=== PATIENT | female | born 1965 | race African-American/Black ===

== ENCOUNTER 2017-12-01 02:42 | Emergency (ER) | payer OTHER ==
[2017-12-01 04:49] LABS: ADD MAN DIFF? NO
[2017-12-01 04:51] LABS: BASO # 0.1 x10^3/uL (0.0-0.2); BASO % 1 % (0-3); EOS % 0 % (0-3); HEMOGLOBIN 8.1 g/dL (12.0-15.5); LYMPH # 1.8 x10^3/uL (1.0-4.8); LYMPH % 18 % (24-48); MEAN CORPUSCULAR HEMOGLOBIN 18 pg (25-35); MEAN CORPUSCULAR HGB CONC 29 g/dL (31-37); MEAN CORPUSCULAR VOLUME 62 fL (79-100); MONO % 10 % (0-9); NEUT # 7.2 x10^3uL (1.8-7.7); NEUT % 70 % (31-73); PLATELET COUNT 231 x10^3/uL (140-400); RED CELL DISTRIBUTION WIDTH 21.6 % (11.5-14.5); WHITE BLOOD COUNT 10.2 x10^3/uL (4.0-11.0)
[2017-12-01] MEDS ORDERED: KETOROLAC 30 MG/ML INJ. (04:53)
[2017-12-01] MEDS: IV NORMAL SALINE 1000ML BAG 1,000 ML IV (04:57)
[2017-12-01] MEDS: KETOROLAC 15 MG/ML VIAL. IV (05:04)
[2017-12-01 05:05] LABS: ANION GAP 9 (6-14); BLOOD UREA NITROGEN 26 mg/dL (7-20); BUN/CREATININE RATIO 26 (6-20); CALCIUM 9.1 mg/dL (8.5-10.1); CARBON DIOXIDE 28 mmol/L (21-32); CHLORIDE 105 mmol/L (98-107); GLUCOSE 91 mg/dL (70-99); POTASSIUM 3.5 mmol/L (3.5-5.1); SODIUM 142 mmol/L (136-145)
[2017-12-01] MEDS: AMPICILLIN/SULBACTAM 3 GM in IV NORMAL SALINE 100ML 100 ML IV (05:08)
[2017-12-01 05:10] LABS: ALBUMIN 3.5 g/dL (3.4-5.0); ALBUMIN/GLOBULIN RATIO 0.7 (1.0-1.7); ALK PHOS 129 U/L (46-116); ALT (SGPT) 32 U/L (14-59); AST (SGOT) 26 U/L (15-37); TOTAL BILIRUBIN 0.8 mg/dL (0.2-1.0); TOTAL PROTEIN 8.8 g/dL (6.4-8.2)
[2017-12-01] MEDS ORDERED: CONTRAST GIVEN MC (06:00)
[2017-12-01] MEDS: IOHEXOL 300 MG/ML 100ML VIAL. IV (06:05)
[2017-12-01] MEDS: DEXAMETHASONE SOD PHOS 20 MG/5 ML VIAL. IV (07:05)
[2017-12-01 10:20] LABS: PLT ESTIMATE ADEQUATE (ADEQUATE)
[2017-12-01 10:21] LABS: ANISOCYTOSIS MOD; HYPOCHROMIA PRESENT; OVALOCYTES FEW; POLYCHROMASIA SLIGHT; TEAR DROP CELLS OCC
== END 2017-12-01 07:34 | disposition home or self-care (01) ==
LOC: ER 02:42
DX: J02.9 Acute pharyngitis, unspecified (principal); H92.02 Otalgia, left ear
CPT/HCPCS: 36415; 70491; 80053; 83605; 84702; 85025; 87040; 96365; 96375; 99285-25; J0295; J1100; J1885; J7030; Q9967

== ENCOUNTER 2018-08-28 09:08 | Emergency (ER) | payer OTHER ==
[~2018-08-28] VITALS: Ht 152.4 cm; Wt 77.1 kg
[~2018-08-28 09:08] MED LIST: AMOX1TAB61 PO; HYDR15SO6 PO; PRED50TA PO
[2018-08-28 09:56] LABS: BILIRUBIN,URINE NEGATIVE (NEG); CLARITY,URINE CLOUDY; COLOR,URINE YELLOW; NITRITE,URINE NEGATIVE (NEG); PH,URINE 6.5; PROTEIN,URINE NEGATIVE (NEG-TRACE)
[2018-08-28 10:03] LABS: BACTERIA,URINE FEW /HPF (0-FEW); RBC,URINE OCC /HPF (0-2); SQUAMOUS EPITHELIAL CELL,UR MANY /LPF
[2018-08-28] MEDS ORDERED: FLUCONAZOLE 100 MG TABLET. PO ONE (10:30)
[2018-08-28] MEDS ORDERED: CEPH500C PO (10:34)
[2018-08-28] MEDS ORDERED: AMLO5TAB10 PO (10:34)
[2018-08-28 10:55] VITALS: BP 178/80
--- NOTE | 2018-08-28 10:55 | PHYS DOC ---
Past Medical History Past Medical History: No Pertinent History Additional Past Surgical Histo: GALLSTONES REMOVED Alcohol Use: None Drug Use: None Adult General Chief Complaint Chief Complaint: VAGINAL PROBLEM HPI HPI Patient is a 52 year old female presenting with vaginal itching and some irritation as well as a sensation of something "protruding" from that area. No dysuria no fever no abdominal pain no other symptoms. Current Medications Current Medications Current Medications Medications (Trade) Dose Ordered Sig/Marybeth Start Time Stop Time Status Last Admin Dose Admin Fluconazole (Diflucan) 150 mg 1X ONCE 08/28/18 10:30 08/28/18 10:31 DC Allergies Allergies Allergies Coded Allergies Type Severity Reaction Last Updated Verified No Known Drug Allergies 12/01/17 No Physical Exam Physical Exam Constitutional: Well developed, well nourished, no acute distress, non-toxic appearance. [] HENT: Normocephalic, atraumatic, bilateral external ears normal, oropharynx moist, no oral exudates, nose normal. [] Eyes: PERRLA, EOMI, conjunctiva normal, no discharge. [] Neck: Normal range of motion, no tenderness, supple, no stridor. [] Pulmonary: Normal respiratory effort no increased work of breathing no obvious chest wall trauma ; THERE IS SMALL TO MODERATE WHITISH VAG D/C THERE ARE PROMINENT MILDLY SWOLLEN EXTERNAL LABIA, NO LESIONS. NO UTERINE PROLAPSE Abdomen: Bowel sounds normal, soft, no tenderness, no masses, no pulsatile masses. [] Extremities: No tenderness, no cyanosis, no clubbing, ROM intact, no edema. [] Neurologic: Alert and oriented X 3, normal motor function, normal sensory function, no focal deficits noted. [] Psychologic: Affect normal, judgement normal, mood normal. [] Current Patient Data Vital Signs Vital Signs Date Time Temp Pulse Resp B/P (MAP) Pulse Ox O2 Delivery O2 Flow Rate FiO2 08/28/18 09:30 97.9 88 18 209/99 (135) 99 Room Air 97.9 Lab Values Laboratory Tests Test 08/28/18 09:23 08/28/18 09:28 Urine Collection Type Unknown Urine Color Yellow Urine Clarity Cloudy Urine pH 6.5 Urine Specific Sherrill 1.020 Urine Protein Negative mg/dL (NEG-TRACE) Urine Glucose (UA) Negative mg/dL (NEG) Urine Ketones (Stick) Negative mg/dL (NEG) Urine Blood Trace (NEG) Urine Nitrite Negative (NEG) Urine Bilirubin Negative (NEG) Urine Urobilinogen Dipstick 1.0 mg/dL (0.2 mg/dL) Urine Leukocyte Esterase Large (NEG) Urine RBC Occ /HPF (0-2) Urine WBC 11-20 /HPF (0-4) Urine Squamous Epithelial Cells Many /LPF Urine Bacteria Few /HPF (0-FEW) POC Urine HCG, Qualitative Hcg negative (Negative) Microbiology 08/28/18 Wet Prep - Final, Complete EKG EKG [] Radiology/Procedures Radiology/Procedures [] Course & Med Decision Making Course & Med Decision Making Pertinent Labs and Imaging studies reviewed. (See chart for details) []Elevated blood pressure I gave up her prescription for amlodipine she says her pressures been in the 170s at home for a while now Probable candidal vaginitis based on wet prep fluconazole was given also Keflex given for possible UTI no obvious evidence of active STI related skin lesions however there was some nonspecific external labial swelling cultures are pending and patient is aware. Dragon Disclaimer Dragon Disclaimer This electronic medical record was generated, in whole or in part, using a voice recognition dictation system. Departure Departure Impression: Primary Impression: Vaginitis Additional Impression: Elevated blood pressure reading Disposition: HOME, SELF-CARE Condition: STABLE Patient Instructions: Vaginitis, [id number] Additional Instructions: GET BP CHECKED IN ONE MONTH Scripts Amlodipine Besylate (AMLODIPINE BESYLATE) 5 Mg Tablet 5 MG PO DAILY, #30 TAB Prov: CHRISTINE GUSTAFSON MD 08/28/18 Cephalexin (CEPHALEXIN) 500 Mg Capsule 1 CAP PO QID, #28 CAP Prov: CHRISTINE GUSTAFSON MD 08/28/18 Problem Qualifiers CHRISTINE GUSTAFSON MD Aug 28, 2018 10:55
[2018-08-30 14:16] LABS: GC PROBE Negative (Negative)
== END 2018-08-28 11:00 | disposition home or self-care (01) ==
LOC: ER 09:08
DX: N76.0 Acute vaginitis (principal); R03.0 Elevated blood-pressure reading, without diagnosis of hypertension
CPT/HCPCS: 81001; 81025; 87086; 87491; 87591; 99283; Q0111

== ENCOUNTER 2018-09-16 09:59 | Inpatient (IN) | payer OTHER ==
[2018-09-16] VITALS (7 sets, daily range): BP systolic 105–149; BP diastolic 54–80
[~2018-09-16] VITALS: Ht 152.4 cm; Wt 92.5 kg
[~2018-09-16 09:59] MED LIST changes: +AMLO5TAB10 PO; +CEPH500C PO
--- NOTE | 2018-09-16 11:12 | PHYS DOC ---
Past Medical History Past Medical History: No Pertinent History Additional Past Surgical Histo: GALLSTONES REMOVED Alcohol Use: None Drug Use: None Adult General Chief Complaint Chief Complaint: ABNORMAL LABS HPI HPI Patient is a 52-year-old female who presents to the emergency department for evaluation. She states she has been having some fatigue and dyspnea on exertion for the past several months, and went to see her doctor 2 days ago for a refill of an inhaler, and had some routine blood tests drawn. The patient states she was called and told that her hemoglobin was low, 5.9 according to the results she has with her, and she was sent to the emergency department. She does still have menstrual periods but there are not heavy, and she denies any black or bloody stools, dizziness or lightheadedness. There are no alleviating or exacerbating factors to her symptoms otherwise. Review of Systems Review of Systems Constitutional: Denies fever or chills [] Eyes: Denies change in visual acuity, redness, or eye pain [] HENT: Denies nasal congestion or sore throat [] Respiratory: Denies cough or shortness of breath although she does report some dyspnea on exertion. [] Cardiovascular: The patient denies any shortness of breath, chest pain, palpitations, or orthopnea [] GI: Denies abdominal pain, nausea, vomiting, bloody stools or diarrhea [] : Denies dysuria or hematuria [] Musculoskeletal: Denies back pain or joint pain [] Integument: Denies rash or skin lesions [] Neurologic: Denies headache, focal weakness or sensory changes [] Endocrine: Denies polyuria or polydipsia [] All other systems were reviewed and found to be within normal limits, except as documented in this note. Allergies Allergies Allergies Coded Allergies Type Severity Reaction Last Updated Verified No Known Drug Allergies 12/01/17 No Physical Exam Physical Exam PHYSICAL EXAM: CONSTITUTIONAL: Well developed, well nourished HEAD: normocephalic, atraumatic EENT: PERRL, EOMI. Conjunctivae appear pale, sclerae non-icteric; moist mucous membranes. NECK: Supple, non-tender; no meningismus. LUNGS: Lungs CTA, breathing even and unlabored. Normal air movement. HEART: Regular rate and rhythm, no murmur CHEST: No deformity; non-tender ABDOMEN: The abdomen is soft, and non-tender, no masses or bruits. EXTREM: Normal ROM; no deformity, no calf tenderness. Normal pulses palpable in all extremities. There is no pedal edema. SKIN: No rash; no diaphoresis NEURO: Alert; normal speech and cognition; CN's grossly intact; strength grossly intact without focal deficit. BACK: No CVA TTP. Current Patient Data Vital Signs Vital Signs Date Time Temp Pulse Resp B/P (MAP) Pulse Ox O2 Delivery O2 Flow Rate FiO2 09/16/18 10:55 98.2 86 16 126/71 (89) 99 Room Air 98.2 Lab Values Laboratory Tests Test 09/16/18 10:46 09/16/18 11:13 POC Urine HCG, Qualitative Hcg negative (Negative) White Blood Count 5.1 x10^3/uL (4.0-11.0) Red Blood Count 3.76 x10^6/uL (3.50-5.40) Hemoglobin 6.5 g/dL (12.0-15.5) *L Hematocrit 23.4 % (36.0-47.0) L Mean Corpuscular Volume 62 fL (79-100) L Mean Corpuscular Hemoglobin 17 pg (25-35) L Mean Corpuscular Hemoglobin Concent 28 g/dL (31-37) L Red Cell Distribution Width 20.4 % (11.5-14.5) H Platelet Count 254 x10^3/uL (140-400) Neutrophils (%) (Auto) 55 % (31-73) Lymphocytes (%) (Auto) 33 % (24-48) Monocytes (%) (Auto) 9 % (0-9) Eosinophils (%) (Auto) 2 % (0-3) Basophils (%) (Auto) 1 % (0-3) Neutrophils # (Auto) 2.8 x10^3uL (1.8-7.7) Lymphocytes # (Auto) 1.7 x10^3/uL (1.0-4.8) Monocytes # (Auto) 0.5 x10^3/uL (0.0-1.1) Eosinophils # (Auto) 0.1 x10^3/uL (0.0-0.7) Basophils # (Auto) 0.0 x10^3/uL (0.0-0.2) Prothrombin Time 13.0 SEC (11.7-14.0) Prothrombin Time INR 1.0 (0.8-1.1) Sodium Level 142 mmol/L (136-145) Potassium Level 4.0 mmol/L (3.5-5.1) Chloride Level 103 mmol/L (98-107) Carbon Dioxide Level 29 mmol/L (21-32) Anion Gap 10 (6-14) Blood Urea Nitrogen 11 mg/dL (7-20) Creatinine 0.7 mg/dL (0.6-1.0) Estimated GFR (Cockcroft-Gault) 106.7 BUN/Creatinine Ratio 16 (6-20) Glucose Level 96 mg/dL (70-99) Calcium Level 8.4 mg/dL (8.5-10.1) L Iron Level 10 ug/dL (50-170) L Total Iron Binding Capacity 510 ug/dL (250-450) H Iron Saturation 2 % (15-34) L Total Bilirubin 0.3 mg/dL (0.2-1.0) Aspartate Amino Transferase (AST) 16 U/L (15-37) Alanine Aminotransferase (ALT) 19 U/L (14-59) Alkaline Phosphatase 102 U/L (46-116) Total Protein 8.2 g/dL (6.4-8.2) Albumin 3.7 g/dL (3.4-5.0) Albumin/Globulin Ratio 0.8 (1.0-1.7) L Laboratory Tests 09/16/18 11:13 Laboratory Tests 09/16/18 11:13 EKG EKG [] Radiology/Procedures Radiology/Procedures [] Course & Med Decision Making Course & Med Decision Making Pertinent Lab studies reviewed. (See chart for details) [11:55 AM:The patient's condition remains stable. I spoke with the hospitalist , who accepted the patient to the hospital for further evaluation and treatment. ] Dragon Disclaimer Dragon Disclaimer This electronic medical record was generated, in whole or in part, using a voice recognition dictation system. Departure Departure Impression: Primary Impression: Anemia Disposition: 09 ADMITTED INPATIENT Admitting Physician: Zana Patricio Condition: STABLE Referrals: CAIO HEATH MD (PCP) IDA TEIXEIRA MD Sep 16, 2018 11:12
[2018-09-16 11:31] LABS: BASO % 1 % (0-3); EOS # 0.1 x10^3/uL (0.0-0.7); EOS % 2 % (0-3); HEMATOCRIT 23.4 % (36.0-47.0); LYMPH # 1.7 x10^3/uL (1.0-4.8); LYMPH % 33 % (24-48); MEAN CORPUSCULAR HEMOGLOBIN 17 pg (25-35); MEAN CORPUSCULAR HGB CONC 28 g/dL (31-37); MEAN CORPUSCULAR VOLUME 62 fL (79-100); MONO # 0.5 x10^3/uL (0.0-1.1); MONO % 9 % (0-9); NEUT # 2.8 x10^3uL (1.8-7.7); NEUT % 55 % (31-73); PLATELET COUNT 254 x10^3/uL (140-400); RED BLOOD COUNT 3.76 x10^6/uL (3.50-5.40); RED CELL DISTRIBUTION WIDTH 20.4 % (11.5-14.5); WHITE BLOOD COUNT 5.1 x10^3/uL (4.0-11.0)
[2018-09-16 11:35] LABS: CALCIUM 8.4 mg/dL (8.5-10.1); CREATININE 0.7 mg/dL (0.6-1.0); GFR 106.7
[2018-09-16 11:39] LABS: HEMOGLOBIN 6.5 g/dL (12.0-15.5)
[2018-09-16 11:40] LABS: ALBUMIN 3.7 g/dL (3.4-5.0); ALBUMIN/GLOBULIN RATIO 0.8 (1.0-1.7); TOTAL BILIRUBIN 0.3 mg/dL (0.2-1.0); TOTAL PROTEIN 8.2 g/dL (6.4-8.2)
[2018-09-16] MEDS ORDERED: FERROUS SULFATE 325 MG TABLET. PO ONE (12:00)
[2018-09-16 12:42] LABS: PLT ESTIMATE ADEQUATE (ADEQUATE)
[2018-09-16 12:43] LABS: ANISOCYTOSIS MOD; HYPOCHROMIA MARKED; MICROCYTOSIS MARKED; OVALOCYTES MOD; POLYCHROMASIA SLIGHT; SCHISTOCYTES OCC; TEAR DROP CELLS OCC
--- NOTE | 2018-09-16 13:07 | PDOC1 ---
History and Physical Date of Admission Date of Admission DATE: 09/16/18 TIME: 13:06 Identification/Chief Complaint Chief Complaint seen in er She states she has been having some fatigue and dyspnea on exertion for the past several months,saw doctor 2 days ago for a refill of an inhaler, routine blood tests drawn. she was called and told that her hemoglobin was low, 5.9 according to the results she has with her, and she was sent to the emergency department. does still have menstrual periods but there are not heavy, does not take iron, no blood seen in her stools at home Past Medical History Past Medical History Past Medical History Past Medical History Past Medical History: HTN Additional Past Surgical Histo: GALLSTONES REMOVED Alcohol Use: None Drug Use: None NO TOBACCO PEV VAG DELIVERIES NO COMPLICATIONS FHX OBESITY GI: No pertinent hx Heme/Onc: Anemia NOS Hepatobiliary: No pertinent hx Psych: No pertinent hx Family History Family History: Hypertension Social History Smoke: No ALCOHOL: none Drugs: None Current Problem List Problem List Problems Medical Problems: (1) Anemia Status: Acute Current Medications Current Medications Current Medications Ferrous Sulfate (Feosol) 325 mg 1X ONCE PO Last administered on 09/16/18at 12: 50; Start 09/16/18 at 12:00; Stop 09/16/18 at 12:01; Status DC Active Scripts Active Amlodipine Besylate 5 Mg Tablet 5 Mg PO DAILY Cephalexin 500 Mg Capsule 1 Cap PO QID Hydrocodone-Apap 7.5-325/15 Soln (Hydrocodone Bit/Acetaminophen) 15 Ml Solution 15 Ml PO PRN Q8HRS PRN Prednisone 50 Mg Tablet 1 Tab PO DAILY Start taking medication on 12/02. Augmentin 875-125 Tablet (Amoxicillin/Potassium Clav) 1 Each Tablet 1 Tab PO BID Allergies Allergies: Coded Allergies: No Known Drug Allergies (Unverified , 12/01/17) ROS Review of System Review of Systems Review of Systems Constitutional: Denies fever or chills [] Eyes: Denies change in visual acuity, redness, or eye pain [] HENT: Denies nasal congestion or sore throat [] Respiratory: Denies cough or shortness of breath although she does report some dyspnea on exertion. [] Cardiovascular: The patient denies any shortness of breath, chest pain, palpitations, or orthopnea [] GI: Denies abdominal pain, nausea, vomiting, bloody stools or diarrhea [] : Denies dysuria or hematuria [] Musculoskeletal: Denies back pain or joint pain [] Integument: Denies rash or skin lesions [] Neurologic: Denies headache, focal weakness or sensory changes [] Endocrine: Denies polyuria or polydipsia [] 14 pt systems were reviewed and found to be within normal limits, except as documented General: YES: Fatigue Hematological and Lymphatic: No: Bleeding Problems, Blood Clots, Blood Transfusions, Brusing, Night Sweats, Pallor, Swollen Lymph Nodes, Other Gastrointestinal: No Nausea, No Vomiting, No Abdominal Pain, No Diarrhea, No Constipation, No Melena, No Hematochezia, No Other Musculoskeletal: No Gait Disturbance, No Joint Pain, No Joint Stiffness, No Joint Swelling, No Muscle Pain, No Muscular Weakness, No Pain In:, No Swelling In:, No Other Neurological: No Behavorial Changes, No Bowel/Bladder ControlChng, No Confusion , No Dizziness, No Gait Disturbance, No Headaches, No Impaired Coord/balance, No Memory Loss, No Numbness/Tingling, No Seizures, No Speech Problems, No Tremors, No Visual Changes, No Weakness, No Other Physical Exam Physical Exam Physical Exam Physical Exam PHYSICAL EXAM: CONSTITUTIONAL: Well developed, well nourished HEAD: normocephalic, atraumatic EENT: PERRL, EOMI. Conjunctivae appear pale, sclerae non-icteric; moist mucous membranes. NECK: Supple, non-tender; no meningismus. LUNGS: Lungs CTA, Normal air movement. HEART: Regular rate and rhythm, no murmur CHEST: No deformity; non-tender ABDOMEN: The abdomen is soft, and non-tender, no masses or bruits. EXTREM: Normal ROM; no deformity, no calf tenderness. Normal pulses palpable in all extremities. There is no pedal edema. SKIN: No rash; no diaphoresis NEURO: Alert; normal speech and cognition; CN's grossly intact; strength grossly intact without focal deficit. Rectal Exam: not examined Extremities: No cyanosis Neuro: Normal speech, Cranial nerves 3-12 NL Psych/Mental Status: Mental status NL, Mood NL Vitals Vitals Vital Signs Date Time Temp Pulse Resp B/P (MAP) Pulse Ox O2 Delivery O2 Flow Rate FiO2 09/16/18 10:55 98.2 86 16 126/71 (89) 99 Room Air 98.2 Labs Labs Laboratory Tests Test 09/16/18 10:46 09/16/18 11:13 Bedside Urine HCG, Qualitative Hcg negative (Negative) White Blood Count 5.1 x10^3/uL (4.0-11.0) Red Blood Count 3.76 x10^6/uL (3.50-5.40) Hemoglobin 6.5 g/dL (12.0-15.5) Hematocrit 23.4 % (36.0-47.0) Mean Corpuscular Volume 62 fL (79-100) Mean Corpuscular Hemoglobin 17 pg (25-35) Mean Corpuscular Hemoglobin Concent 28 g/dL (31-37) Red Cell Distribution Width 20.4 % (11.5-14.5) Platelet Count 254 x10^3/uL (140-400) Neutrophils (%) (Auto) 55 % (31-73) Lymphocytes (%) (Auto) 33 % (24-48) Monocytes (%) (Auto) 9 % (0-9) Eosinophils (%) (Auto) 2 % (0-3) Basophils (%) (Auto) 1 % (0-3) Neutrophils # (Auto) 2.8 x10^3uL (1.8-7.7) Lymphocytes # (Auto) 1.7 x10^3/uL (1.0-4.8) Monocytes # (Auto) 0.5 x10^3/uL (0.0-1.1) Eosinophils # (Auto) 0.1 x10^3/uL (0.0-0.7) Basophils # (Auto) 0.0 x10^3/uL (0.0-0.2) Platelet Estimate Adequate (ADEQUATE) Large Platelets Few Giant Platelets Few Polychromasia Slight Hypochromasia Marked Basophilic Stippling Present Anisocytosis Mod Microcytosis Marked Tear Drop Cells Occ Ovalocytes Mod Schistocytes Occ Prothrombin Time 13.0 SEC (11.7-14.0) Prothromb Time International Ratio 1.0 (0.8-1.1) Sodium Level 142 mmol/L (136-145) Potassium Level 4.0 mmol/L (3.5-5.1) Chloride Level 103 mmol/L (98-107) Carbon Dioxide Level 29 mmol/L (21-32) Anion Gap 10 (6-14) Blood Urea Nitrogen 11 mg/dL (7-20) Creatinine 0.7 mg/dL (0.6-1.0) Estimated GFR (Cockcroft-Gault) 106.7 BUN/Creatinine Ratio 16 (6-20) Glucose Level 96 mg/dL (70-99) Calcium Level 8.4 mg/dL (8.5-10.1) Iron Level 10 ug/dL (50-170) Total Iron Binding Capacity 510 ug/dL (250-450) Iron Saturation 2 % (15-34) Total Bilirubin 0.3 mg/dL (0.2-1.0) Aspartate Amino Transf (AST/SGOT) 16 U/L (15-37) Alanine Aminotransferase (ALT/SGPT) 19 U/L (14-59) Alkaline Phosphatase 102 U/L (46-116) Total Protein 8.2 g/dL (6.4-8.2) Albumin 3.7 g/dL (3.4-5.0) Albumin/Globulin Ratio 0.8 (1.0-1.7) Serum Folate 11.51 ng/ml (3.2-20.0) Laboratory Tests Test 09/16/18 10:46 09/16/18 11:13 Bedside Urine HCG, Qualitative Hcg negative (Negative) White Blood Count 5.1 x10^3/uL (4.0-11.0) Red Blood Count 3.76 x10^6/uL (3.50-5.40) Hemoglobin 6.5 g/dL (12.0-15.5) Hematocrit 23.4 % (36.0-47.0) Mean Corpuscular Volume 62 fL (79-100) Mean Corpuscular Hemoglobin 17 pg (25-35) Mean Corpuscular Hemoglobin Concent 28 g/dL (31-37) Red Cell Distribution Width 20.4 % (11.5-14.5) Platelet Count 254 x10^3/uL (140-400) Neutrophils (%) (Auto) 55 % (31-73) Lymphocytes (%) (Auto) 33 % (24-48) Monocytes (%) (Auto) 9 % (0-9) Eosinophils (%) (Auto) 2 % (0-3) Basophils (%) (Auto) 1 % (0-3) Neutrophils # (Auto) 2.8 x10^3uL (1.8-7.7) Lymphocytes # (Auto) 1.7 x10^3/uL (1.0-4.8) Monocytes # (Auto) 0.5 x10^3/uL (0.0-1.1) Eosinophils # (Auto) 0.1 x10^3/uL (0.0-0.7) Basophils # (Auto) 0.0 x10^3/uL (0.0-0.2) Platelet Estimate Adequate (ADEQUATE) Large Platelets Few Giant Platelets Few Polychromasia Slight Hypochromasia Marked Basophilic Stippling Present Anisocytosis Mod Microcytosis Marked Tear Drop Cells Occ Ovalocytes Mod Schistocytes Occ Prothrombin Time 13.0 SEC (11.7-14.0) Prothromb Time International Ratio 1.0 (0.8-1.1) Sodium Level 142 mmol/L (136-145) Potassium Level 4.0 mmol/L (3.5-5.1) Chloride Level 103 mmol/L (98-107) Carbon Dioxide Level 29 mmol/L (21-32) Anion Gap 10 (6-14) Blood Urea Nitrogen 11 mg/dL (7-20) Creatinine 0.7 mg/dL (0.6-1.0) Estimated GFR (Cockcroft-Gault) 106.7 BUN/Creatinine Ratio 16 (6-20) Glucose Level 96 mg/dL (70-99) Calcium Level 8.4 mg/dL (8.5-10.1) Iron Level 10 ug/dL (50-170) Total Iron Binding Capacity 510 ug/dL (250-450) Iron Saturation 2 % (15-34) Total Bilirubin 0.3 mg/dL (0.2-1.0) Aspartate Amino Transf (AST/SGOT) 16 U/L (15-37) Alanine Aminotransferase (ALT/SGPT) 19 U/L (14-59) Alkaline Phosphatase 102 U/L (46-116) Total Protein 8.2 g/dL (6.4-8.2) Albumin 3.7 g/dL (3.4-5.0) Albumin/Globulin Ratio 0.8 (1.0-1.7) Serum Folate 11.51 ng/ml (3.2-20.0) VTE Prophylaxis Ordered VTE Prophylaxis Devices: No VTE Pharmacological Prophylaxi: Yes Assessment/Plan Assessment/Plan impression 1. severe anemia, baseline hgb 8.1 in 2018 here NOW 6.5 2. MICROCYTIC INDICES, FE DEF LIKELY 3. OBESITY 4. HYPERTENSION 5. FATIGUE SEC TO ANEMIA plan transfuse x 1 unit gi consult, may need out pt UGI/ COLONOSCOPY/ EGD IRON PANEL,// FERRITIN NORVASC 5 MG PO DAILY TSH SCD MARVIN CARABALLO MD Sep 16, 2018 13:07
--- NOTE | 2018-09-16 14:06 | EKG ---
[facility] [address] [place] [address] Test Date: 2018-09-16 Test Time: 12:20:35 Pat Name: MOIZ VALERIO Department: Room: 574 1 Gender: F Accounting Office Manager: : 1965 Requested By: IDA TEIXEIRA Order Number: [id number] Reading MD: Tucker Palacios MD Measurements Intervals [place] Rate: 80 P: 72 AR: 152 QRS: 45 QRSD: 76 T: 25 QT: 388 QTc: 451 Interpretive Statements SINUS RHYTHM Electronically Signed On 09-23-2018 13:47:08 CDT by Tucker Palacios MD
[2018-09-16] MEDS ORDERED: HYDROcodone/APAP 7.5/325MG 1 TAB TABLET PO PRN (18:00)
[2018-09-16] MEDS ORDERED: HYDROcodon/APAP 7.5/325MG ORAL 15 ML SOLUTION PO PRN (18:00)
[2018-09-16] MEDS ORDERED: MAGNESIUM HYDROXIDE 2,400 MG/30 ML ORAL.SUSP. PO PRN (21:00)
[2018-09-16] MEDS: DOCUSATE SODIUM 100 MG CAPSULE. PO SCH (21:08)
[2018-09-17 03:00] VITALS: BP 133/84
[2018-09-17 04:19] LABS: BASO # 0.1 x10^3/uL (0.0-0.2); BASO % 1 % (0-3); EOS # 0.1 x10^3/uL (0.0-0.7); EOS % 1 % (0-3); HEMATOCRIT 23.6 % (36.0-47.0); LYMPH # 2.1 x10^3/uL (1.0-4.8); LYMPH % 31 % (24-48); MEAN CORPUSCULAR HEMOGLOBIN 19 pg (25-35); MEAN CORPUSCULAR HGB CONC 29 g/dL (31-37); MONO # 0.5 x10^3/uL (0.0-1.1); MONO % 8 % (0-9); NEUT # 4.2 x10^3uL (1.8-7.7); NEUT % 60 % (31-73); PLATELET COUNT 207 x10^3/uL (140-400); RED BLOOD COUNT 3.57 x10^6/uL (3.50-5.40); RED CELL DISTRIBUTION WIDTH 25.6 % (11.5-14.5); WHITE BLOOD COUNT 6.9 x10^3/uL (4.0-11.0)
[2018-09-17 04:35] LABS: CALCIUM 8.5 mg/dL (8.5-10.1); CREATININE 0.6 mg/dL (0.6-1.0); GFR 127.5; POTASSIUM 3.9 mmol/L (3.5-5.1)
[2018-09-17 05:27] LABS: HEMOGLOBIN 6.8 g/dL (12.0-15.5)
[2018-09-17 05:29] LABS: MEAN CORPUSCULAR VOLUME 66 fL (79-100)
[2018-09-17 07:00] VITALS: BP 119/62
[2018-09-17] MEDS: DOCUSATE SODIUM 100 MG CAPSULE. PO SCH (09:00)
[2018-09-17] MEDS ORDERED: amLODIPine BESYLATE 5 MG TABLET PO SCH (09:00)
[2018-09-17] MEDS ORDERED: POLYETHYLENE GLYCOL 3350 17 GM PACKET. PO SCH (09:00)
[2018-09-17 09:43] VITALS: BP 125/62
--- NOTE | 2018-09-17 09:58 | PDOC2 ---
GI CONSULT Reason For Consult: Anemia, may need outpt colonoscopy HPI: HPI: 52 y/o female sent to ER by PCP for anemia and admitted. Reports h/o anemia for 6-12 months, followed by her PCP, unclear etiology. Noted w/ microcytic anemia here in 2018. Some fatigue and SOA recently, but no bleeding. Iron deficient this admission. No hematemesis, hematochezia, melena, or menorrhagia. Would like to go home today. H/o reflux (burning in throat) x 1 year, takes a lot of baking soda. No dysphagia. No n/v. No abd pain. No diarrhea or constipation. Good appetite. Has gained "a lot" of weight. No previous EGD or colonoscopy. S/p cholecystectomy for gallstones. No liver, pancreas, or PUD history. No regular use of NSAIDs. Says her doctor recently found some lumps in her breasts. PMH: PMH: HTN, asthma, anemia cholecystectomy, appendectomy FH: Family History: Cancer ("lots of cancer in my family") Social History: Smoke: No ALCOHOL: none Drugs: None ROS: GEN: +fatigue HEENT: Denies blurred vision, sore throat CV: Denies chest pain RESP: +SOA GI: Per HPI : Denies hematuria, dysuria ENDO: Denies weight changes NEURO: Denies confusion, dizziness MSK: Denies weakness, joint pain/swelling SKIN: Denies jaundice, pruritus Vitals: Vitals: Vital Signs Date Time Temp Pulse Resp B/P (MAP) Pulse Ox O2 Delivery O2 Flow Rate FiO2 09/17/18 09:52 82 125/62 09/17/18 09:43 98.2 16 98.2 09/17/18 07:00 98 Room Air Labs: Labs: Laboratory Tests Test 09/16/18 10:46 09/16/18 11:13 09/16/18 17:44 09/17/18 03:35 Bedside Urine HCG, Qualitative Hcg negative (Negative) White Blood Count 5.1 x10^3/uL (4.0-11.0) 6.9 x10^3/uL (4.0-11.0) Red Blood Count 3.76 x10^6/uL (3.50-5.40) 3.57 x10^6/uL (3.50-5.40) Hemoglobin 6.5 g/dL (12.0-15.5) 6.8 g/dL (12.0-15.5) Hematocrit 23.4 % (36.0-47.0) 23.6 % (36.0-47.0) Mean Corpuscular Volume 62 fL (79-100) 66 fL (79-100) Mean Corpuscular Hemoglobin 17 pg (25-35) 19 pg (25-35) Mean Corpuscular Hemoglobin Concent 28 g/dL (31-37) 29 g/dL (31-37) Red Cell Distribution Width 20.4 % (11.5-14.5) 25.6 % (11.5-14.5) Platelet Count 254 x10^3/uL (140-400) 207 x10^3/uL (140-400) Neutrophils (%) (Auto) 55 % (31-73) 60 % (31-73) Lymphocytes (%) (Auto) 33 % (24-48) 31 % (24-48) Monocytes (%) (Auto) 9 % (0-9) 8 % (0-9) Eosinophils (%) (Auto) 2 % (0-3) 1 % (0-3) Basophils (%) (Auto) 1 % (0-3) 1 % (0-3) Neutrophils # (Auto) 2.8 x10^3uL (1.8-7.7) 4.2 x10^3uL (1.8-7.7) Lymphocytes # (Auto) 1.7 x10^3/uL (1.0-4.8) 2.1 x10^3/uL (1.0-4.8) Monocytes # (Auto) 0.5 x10^3/uL (0.0-1.1) 0.5 x10^3/uL (0.0-1.1) Eosinophils # (Auto) 0.1 x10^3/uL (0.0-0.7) 0.1 x10^3/uL (0.0-0.7) Basophils # (Auto) 0.0 x10^3/uL (0.0-0.2) 0.1 x10^3/uL (0.0-0.2) Platelet Estimate Adequate (ADEQUATE) Large Platelets Few Giant Platelets Few Polychromasia Slight Hypochromasia Marked Basophilic Stippling Present Anisocytosis Mod Microcytosis Marked Tear Drop Cells Occ Ovalocytes Mod Schistocytes Occ Prothrombin Time 13.0 SEC (11.7-14.0) Prothromb Time International Ratio 1.0 (0.8-1.1) Sodium Level 142 mmol/L (136-145) 141 mmol/L (136-145) Potassium Level 4.0 mmol/L (3.5-5.1) 3.9 mmol/L (3.5-5.1) Chloride Level 103 mmol/L (98-107) 104 mmol/L (98-107) Carbon Dioxide Level 29 mmol/L (21-32) 27 mmol/L (21-32) Anion Gap 10 (6-14) 10 (6-14) Blood Urea Nitrogen 11 mg/dL (7-20) 9 mg/dL (7-20) Creatinine 0.7 mg/dL (0.6-1.0) 0.6 mg/dL (0.6-1.0) Estimated GFR (Cockcroft-Gault) 106.7 127.5 BUN/Creatinine Ratio 16 (6-20) Glucose Level 96 mg/dL (70-99) 97 mg/dL (70-99) Calcium Level 8.4 mg/dL (8.5-10.1) 8.5 mg/dL (8.5-10.1) Iron Level 10 ug/dL (50-170) Total Iron Binding Capacity 510 ug/dL (250-450) Iron Saturation 2 % (15-34) Total Bilirubin 0.3 mg/dL (0.2-1.0) Aspartate Amino Transf (AST/SGOT) 16 U/L (15-37) Alanine Aminotransferase (ALT/SGPT) 19 U/L (14-59) Alkaline Phosphatase 102 U/L (46-116) Total Protein 8.2 g/dL (6.4-8.2) Albumin 3.7 g/dL (3.4-5.0) Albumin/Globulin Ratio 0.8 (1.0-1.7) Serum Folate 11.51 ng/ml (3.2-20.0) Ferritin 2 ng/mL (8-252) Allergies: Coded Allergies: No Known Drug Allergies (Unverified , 12/01/17) Medications: Current Medications Medications (Trade) Dose Ordered Sig/Marybeth Route PRN Reason Start Time Stop Time Status Last Admin Dose Admin Ferrous Sulfate (Feosol) 325 mg 1X ONCE PO 09/16/18 12:00 09/16/18 12:01 DC 09/16/18 12:50 Amlodipine Besylate (Norvasc) 5 mg DAILY PO 09/17/18 09:00 09/17/18 09:52 Docusate Sodium (Colace) 100 mg BID PO 09/16/18 21:00 09/16/18 21:08 Magnesium Hydroxide (Milk Of Magnesia) 2,400 mg PRN DAILY PRN PO CONSTIPATION 09/16/18 21:00 09/16/18 21:08 Imaging: Imaging: - PE: GEN: NAD HEENT: Atraumatic, PERRL LUNGS: CTAB HEART: RRR ABD: NABS, S/ND/NT EXTREMITY: No edema SKIN: No rashes, no jaundice NEURO/PSYCH: A & O 3 A/P: A/P: Fatigue, SOA NICOLE GERD CRC screen - none S/p cholecystectomy -- Blood and iron transfusions in process. Start PPI. Check pelv US. Outpt EGD and colonoscopy. DC per primary. WASHINGTON PIZANO Sep 17, 2018 09:58
[2018-09-17 10:43] VITALS: BP 130/80
--- NOTE | 2018-09-17 10:57 | NUR ---
SW following for discharge planning. Discussed with RN, pt is from home, having a blood transfusion today. RN advised no SW needs, advised pt is wanting to leave as soon as possible. SW will continue to follow.
[2018-09-17 11:44] VITALS: BP 138/66
[2018-09-17 12:57] VITALS: BP 144/82
[2018-09-17] MEDS ORDERED: IRON SUCROSE COMPLEX 200 MG in IV NORMAL SALINE 100ML 100 ML IV ONE (13:00)
[2018-09-17] MEDS ORDERED: POLY17PO28 PO (13:04)
[2018-09-17] MEDS ORDERED: FERR325T14 PO ×2 (13:04→13:05)
[2018-09-17] MEDS ORDERED: VITA1TAB19 PO (13:04)
[2018-09-17] MEDS ORDERED: DOCU-109 PO (13:04)
[2018-09-17] MEDS ORDERED: IRON SUCROSE COMPLEX 500 MG in IV NORMAL SALINE 250ML 250 ML IV ONE (14:00)
--- NOTE | 2018-09-17 14:58 | PDOC3 ---
Discharge Summary Visit Information Date of Admission: Sep 16, 2018 Date of Discharge: Sep 17, 2018 Admitting Diagnosis: symptomatic anemia Final Diagnosis 1. severe anemia, baseline hgb 8.1 in 2018 here NOW 6.5 2. MICROCYTIC INDICES, iron deficiency, marked, 3. OBESITY, BMI 40 4. HYPERTENSION 5. symptomatic anemia with fatigue \ \Problems Medical Problems: (1) Anemia Status: Acute Brief Hospital Course Allergies Allergies Coded Allergies Type Severity Reaction Last Updated Verified No Known Drug Allergies 12/01/17 No Vital Signs Vital Signs Date Time Temp Pulse Resp B/P (MAP) Pulse Ox O2 Delivery O2 Flow Rate FiO2 09/17/18 12:57 98.0 84 16 144/82 98.0 09/17/18 08:00 Room Air 09/17/18 07:00 98 Lab Results Laboratory Tests Test 09/16/18 10:46 09/16/18 11:13 09/16/18 17:44 09/17/18 03:35 Bedside Urine HCG, Qualitative Hcg negative (Negative) White Blood Count 5.1 x10^3/uL (4.0-11.0) 6.9 x10^3/uL (4.0-11.0) Red Blood Count 3.76 x10^6/uL (3.50-5.40) 3.57 x10^6/uL (3.50-5.40) Hemoglobin 6.5 g/dL (12.0-15.5) 6.8 g/dL (12.0-15.5) Hematocrit 23.4 % (36.0-47.0) 23.6 % (36.0-47.0) Mean Corpuscular Volume 62 fL (79-100) 66 fL (79-100) Mean Corpuscular Hemoglobin 17 pg (25-35) 19 pg (25-35) Mean Corpuscular Hemoglobin Concent 28 g/dL (31-37) 29 g/dL (31-37) Red Cell Distribution Width 20.4 % (11.5-14.5) 25.6 % (11.5-14.5) Platelet Count 254 x10^3/uL (140-400) 207 x10^3/uL (140-400) Neutrophils (%) (Auto) 55 % (31-73) 60 % (31-73) Lymphocytes (%) (Auto) 33 % (24-48) 31 % (24-48) Monocytes (%) (Auto) 9 % (0-9) 8 % (0-9) Eosinophils (%) (Auto) 2 % (0-3) 1 % (0-3) Basophils (%) (Auto) 1 % (0-3) 1 % (0-3) Neutrophils # (Auto) 2.8 x10^3uL (1.8-7.7) 4.2 x10^3uL (1.8-7.7) Lymphocytes # (Auto) 1.7 x10^3/uL (1.0-4.8) 2.1 x10^3/uL (1.0-4.8) Monocytes # (Auto) 0.5 x10^3/uL (0.0-1.1) 0.5 x10^3/uL (0.0-1.1) Eosinophils # (Auto) 0.1 x10^3/uL (0.0-0.7) 0.1 x10^3/uL (0.0-0.7) Basophils # (Auto) 0.0 x10^3/uL (0.0-0.2) 0.1 x10^3/uL (0.0-0.2) Platelet Estimate Adequate (ADEQUATE) Large Platelets Few Giant Platelets Few Polychromasia Slight Hypochromasia Marked Basophilic Stippling Present Anisocytosis Mod Microcytosis Marked Tear Drop Cells Occ Ovalocytes Mod Schistocytes Occ Prothrombin Time 13.0 SEC (11.7-14.0) Prothromb Time International Ratio 1.0 (0.8-1.1) Sodium Level 142 mmol/L (136-145) 141 mmol/L (136-145) Potassium Level 4.0 mmol/L (3.5-5.1) 3.9 mmol/L (3.5-5.1) Chloride Level 103 mmol/L (98-107) 104 mmol/L (98-107) Carbon Dioxide Level 29 mmol/L (21-32) 27 mmol/L (21-32) Anion Gap 10 (6-14) 10 (6-14) Blood Urea Nitrogen 11 mg/dL (7-20) 9 mg/dL (7-20) Creatinine 0.7 mg/dL (0.6-1.0) 0.6 mg/dL (0.6-1.0) Estimated GFR (Cockcroft-Gault) 106.7 127.5 BUN/Creatinine Ratio 16 (6-20) Glucose Level 96 mg/dL (70-99) 97 mg/dL (70-99) Calcium Level 8.4 mg/dL (8.5-10.1) 8.5 mg/dL (8.5-10.1) Iron Level 10 ug/dL (50-170) Total Iron Binding Capacity 510 ug/dL (250-450) Iron Saturation 2 % (15-34) Total Bilirubin 0.3 mg/dL (0.2-1.0) Aspartate Amino Transf (AST/SGOT) 16 U/L (15-37) Alanine Aminotransferase (ALT/SGPT) 19 U/L (14-59) Alkaline Phosphatase 102 U/L (46-116) Total Protein 8.2 g/dL (6.4-8.2) Albumin 3.7 g/dL (3.4-5.0) Albumin/Globulin Ratio 0.8 (1.0-1.7) Serum Folate 11.51 ng/ml (3.2-20.0) Ferritin 2 ng/mL (8-252) Thyroid Stimulating Hormone (TSH) 2.244 uIU/mL (0.358-3.74) Laboratory Tests Test 09/16/18 17:44 09/17/18 03:35 Ferritin 2 ng/mL (8-252) White Blood Count 6.9 x10^3/uL (4.0-11.0) Red Blood Count 3.57 x10^6/uL (3.50-5.40) Hemoglobin 6.8 g/dL (12.0-15.5) Hematocrit 23.6 % (36.0-47.0) Mean Corpuscular Volume 66 fL (79-100) Mean Corpuscular Hemoglobin 19 pg (25-35) Mean Corpuscular Hemoglobin Concent 29 g/dL (31-37) Red Cell Distribution Width 25.6 % (11.5-14.5) Platelet Count 207 x10^3/uL (140-400) Neutrophils (%) (Auto) 60 % (31-73) Lymphocytes (%) (Auto) 31 % (24-48) Monocytes (%) (Auto) 8 % (0-9) Eosinophils (%) (Auto) 1 % (0-3) Basophils (%) (Auto) 1 % (0-3) Neutrophils # (Auto) 4.2 x10^3uL (1.8-7.7) Lymphocytes # (Auto) 2.1 x10^3/uL (1.0-4.8) Monocytes # (Auto) 0.5 x10^3/uL (0.0-1.1) Eosinophils # (Auto) 0.1 x10^3/uL (0.0-0.7) Basophils # (Auto) 0.1 x10^3/uL (0.0-0.2) Sodium Level 141 mmol/L (136-145) Potassium Level 3.9 mmol/L (3.5-5.1) Chloride Level 104 mmol/L (98-107) Carbon Dioxide Level 27 mmol/L (21-32) Anion Gap 10 (6-14) Blood Urea Nitrogen 9 mg/dL (7-20) Creatinine 0.6 mg/dL (0.6-1.0) Estimated GFR (Cockcroft-Gault) 127.5 Glucose Level 97 mg/dL (70-99) Calcium Level 8.5 mg/dL (8.5-10.1) Thyroid Stimulating Hormone (TSH) 2.244 uIU/mL (0.358-3.74) Brief Hospital Course Ms. Cordero is a 52 old admit from primary care for anemia, microcytic , marked iron def. 2 u PRBC given 500mg IV iron ordered 'then PO and B complex GI consulted, will need EGD and colon to look for iron def. also will need outpatient Geriatrics Physician consult, she still has menses, plan discussed at length with pt. Discharge Information Condition at Discharge: Improved Follow Up: Weeks Disposition/Orders: D/C to Home Scheduled Amlodipine Besylate (Amlodipine Besylate) 5 Mg Tablet, 5 MG PO DAILY, #30 Prescribed by: CHRISTINE GUSTAFSON MD on 08/28/18 1034 Last Action: Continued on 09/16/181747 by MARVIN CARABALLO MD Amoxicillin/Potassium Clav (Augmentin 875-125 Tablet) 1 Each Tablet, 1 TAB PO BID, #20 Prescribed by: DARY HOWELL on 12/01/17 0657 Last Action: HELD on 09/16/181747 by MARVIN CARABALLO MD Cephalexin (Cephalexin) 500 Mg Capsule, 1 CAP PO QID, #28 Prescribed by: CHRISTINE GUSTAFSON MD on 08/28/18 1034 Last Action: HELD on 09/16/181747 by MARVIN CARABALLO MD Docusate Sodium (Colace) 100 Mg Capsule, 100 MG PO BID for constipation, #60 Prescribed by: SERA BECKER on 09/17/18 1304 Ferrous Sulfate (Ferrous Sulfate) 325 Mg Tablet, 1 TAB PO BID for iron deficieny , #60 Prescribed by: SERA BECKER on 09/17/18 1305 Prednisone (Prednisone) 50 Mg Tablet, 1 TAB PO DAILY, #4 Ref 0 Start taking medication on 12/02. Prescribed by: DARY HOWELL on 12/01/17 0657 Last Action: HELD on 09/16/181747 by MARVIN CARABALLO MD Vitamin B Complex (B Complex) 1 Each Tablet, 1 EACH PO DAILY for anemia, #100 Prescribed by: SERA BECKER on 09/17/18 1304 Scheduled PRN Hydrocodone Bit/Acetaminophen (Hydrocodone-Apap 7.5-325/15 Soln ) 15 Ml Solution, 15 ML PO PRN Q8HRS PRN for PAIN, #120 Ref 0 Prescribed by: DARY HOWELL on 12/01/1758 Last Action: Continued on 09/16/181747 by MARVIN CARABALLO MD Polyethylene Glycol 3350 (Polyethylene Glycol 3350) 17 Gm Powd.pack, 17 GM PO DAILY PRN for CONSTIPATION, #30 Prescribed by: SERA BECKER on 09/17/18 1304 Patient Instructions Patient Instructions > 30 min face to face SERA BECKER MD Sep 17, 2018 14:58
--- NOTE | 2018-09-17 16:06 | RAD ---
Pelvic ultrasound, 09/17/2018: HISTORY: Anemia, looking for bleeding source Transabdominal and transvaginal scans were obtained. The uterus measures 9.7 x 5.9 x 5.4 cm. The central uterine echo complex measures 8 mm in AP dimension. No uterine mass is identified. The ovaries are within normal limits in size. 2 small simple cysts are present in the left ovary with the largest of these measuring 2.1 cm. The adnexal regions are otherwise unremarkable. No free fluid is evident in the pelvis. IMPRESSION: 1. Small left ovarian cysts. 2. The pelvic ultrasound is otherwise unremarkable. Electronically signed by: Kendrick Winchester MD (09/17/2018 4:03 PM) [facility]
[2018-09-17] MEDS ORDERED: PANTOPRAZOLE 40 MG TABLET.DR. PO SCH (16:30)
--- NOTE | 2018-09-17 17:45 | NUR ---
Discharge Note: MOIZ VALERIO [address] Discharge instructions and discharge home medications reviewed with Patient and a copy given. All questions have been answered and understanding verbalized. The following instructions and handouts were given: Iron deficiency Anemia, dishcarge instructions. Discontinued lines and drains: Left AC PIV removed, Catheter intact. Patient discharged to Home with Self-Care via Spouse's Private Vehicle
== END 2018-09-17 16:01 | disposition home or self-care (01) | DRG 812 ==
LOC: ER 09:59 → 5 SOUTH 11:59
PROVIDERS: ADMIT Family Medicine; ATTEND Family Medicine
PROC: 30233N1 Transfusion of Nonautologous Red Blood Cells into Peripheral Vein, Percutaneous Approach (ICD-10-PCS; principal; 2018-09-16)
DX: D50.9 Iron deficiency anemia, unspecified (principal); Z68.41 Body mass index [BMI] 40.0-44.9, adult; I10 Essential (primary) hypertension; E66.9 Obesity, unspecified; J45.909 Unspecified asthma, uncomplicated; K21.9 Gastro-esophageal reflux disease without esophagitis; Z82.49 Family history of ischemic heart disease and other diseases of the circulatory system; Z90.49 Acquired absence of other specified parts of digestive tract; Z79.899 Other long term (current) drug therapy
CPT/HCPCS: 36415; 76830; 76856; 80048; 80053; 81025; 82728; 82746; 83540; 83550; 84443; 85025; 85610; 86850; 86900; 86901; 86920; 93005; J1756; J7050; P9016; 99285-25; J7030

== ENCOUNTER → 2018-10-04 | Day surgery (SDC) | payer MEDICAID, OTHER ==
[~2018-10-04] MED LIST changes: +DOCU-109 PO; +FERR325T14 PO; +HYDROmorphone 2 MG/ML VIAL IV PRN; +IV RINGERS,LACTATED 1000ML 1,000 ML IV SCH; +LIDOCAINE 1% PF 2 ML VIAL. ID PRN; +MORPHINE SULFATE 2 MG/ML VIAL. IV PRN; +ONDANSETRON PF 4 MG/2 ML VIAL. IV PRN; +POLY17PO28 PO; +PROCHLORPERAZINE 10 MG/2 ML VIAL. IV PRN; +PROPOFOL 60 ML IV ONE; +VITA1TAB19 PO; +fentaNYL PF VIAL 100 MCG/2 ML VIAL IV PRN
--- NOTE | 2018-10-04 13:57 | PDOC1 ---
History and Physical Date of Admission Date of Admission DATE: 10/04/18 TIME: 13:53 Identification/Chief Complaint Chief Complaint Iron deficiency anemia. Source Source: Chart review, Patient History of Present Illness History of Present Illness 52 y/o female seen in [facility]. Had NICOLE. Chronic reflux. No overt bleeding. Pelvic sono OK. No prior scopes. No clear h/o CRC in family. Past Medical History Cardiovascular: HTN Pulmonary: Asthma Past Surgical History Past Surgical History: Appendectomy, Cholecystectomy Family History Family History: Cancer (unspecified), Hypertension Social History Smoke: No ALCOHOL: none Drugs: None Current Medications Current Medications Current Medications Ondansetron HCl (Zofran) 4 mg PRN Q6HRS PRN IV NAUSEA/VOMITING; Start 10/04/18 at 07:00; Stop 10/04/18 at 20:00 Fentanyl Citrate (Fentanyl 2ml Vial) 25 mcg PRN Q5MIN PRN IV MILD PAIN; Start 10/04/18 at 07:00; Stop 10/04/18 at 20:00 Fentanyl Citrate (Fentanyl 2ml Vial) 50 mcg PRN Q5MIN PRN IV MODERATE TO SEVERE PAIN; Start 10/04/18 at 07:00; Stop 10/04/18 at 20:00 Morphine Sulfate (Morphine Sulfate) 1 mg PRN Q10MIN PRN IV SEVERE PAIN; Start 10/04/18 at 07:00; Stop 10/04/18 at 20:00 Ringer's Solution 1,000 ml @ 30 mls/hr Q24H IV Last administered on 10/04/18at 13:37; Start 10/04/18 at 07:00; Stop 10/04/18 at 18:59 Lidocaine HCl (Xylocaine-Mpf 1% 2ml Vial) 2 ml PRN 1X PRN ID PRIOR TO IV START ; Start 10/04/18 at 07:00; Stop 10/04/18 at 20:00 Hydromorphone HCl (Dilaudid) 0.5 mg PRN Q10MIN PRN IV SEV PAIN, Second choice; Start 10/04/18 at 07:00; Stop 10/04/18 at 20:00 Prochlorperazine Edisylate (Compazine) 5 mg PACU PRN PRN IV NAUSEA, MRX1; Start 10/04/18 at 07:00; Stop 10/04/18 at 20:00 Propofol 60 ml @ As Directed STK-MED ONCE IV ; Start 10/04/18 at 13:42; Stop 10/04 at 13:43; Status DC Active Scripts Active Ferrous Sulfate 325 Mg Tablet 1 Tab PO BID Amlodipine Besylate 5 Mg Tablet 5 Mg PO DAILY Allergies Allergies: Coded Allergies: No Known Drug Allergies (Unverified , 10/04/18) ROS Review of System Otherwise negative. Physical Exam General: Alert, Oriented X3, Cooperative, No acute distress Lungs: Clear to auscultation Heart: S1S2, RRR, no gallops, no murmurs Abdomen: Normal bowel sounds, Soft, No tenderness, No hepatosplenomegaly, No masses Rectal Exam: deferred (to procedure) Extremities: No cyanosis, No edema Skin: No significant lesion Neuro: Normal gait, Normal speech, Strength at 5/5 X4 ext, Normal tone, Sensation intact, Cranial nerves 3-12 NL, Reflexes 2+ Psych/Mental Status: Mental status NL, Mood NL Vitals Vitals Vital Signs Date Time Temp Pulse Resp B/P (MAP) Pulse Ox O2 Delivery O2 Flow Rate FiO2 10/04/18 13:14 97.9 103 16 98 97.9 VTE Prophylaxis Ordered VTE Prophylaxis Devices: No VTE Pharmacological Prophylaxi: No Assessment/Plan Assessment/Plan IMP: Chronic heartburn NICOLE REC: Colonoscopy/EGD. DOMINIC IBARRA MD Oct 04, 2018 13:57
--- NOTE | 2018-10-04 14:31 | PDOC4 ---
PROCEDURE Procedure Colonoscopy/EGD with biopsies Indication: Screening/chronic GERD/NICOLE Meds: per anesthesia Findings: LAUREN normal Colonoscope advanced to cecum. Prep good. Mucosa normal. Scattered diverticula, sigmoid. Grade I IH's on retroflex. No polyps, etc. E--Grade A at 36cm. G--medium HH with To lesion seen. Antral biopsies. D--Normal to third portion; biopsies second portion. Fabrizio. well. IMP: Diverticulosis Hemorrhoids Reflux HH with To lesion(s)--may be source of anemia. REC: Await biopsies. Resume home meds and diet. F/u in 2 weeks. DOMINIC IBARRA MD Oct 04, 2018 14:31
[2018-10-04 14:47] VITALS: BP 140/86
== END | disposition home or self-care (01) ==
LOC: ENDOS 12:51
PROVIDERS: ATTEND Internal Medicine Gastroenterology
DX: K57.30 Diverticulosis of large intestine without perforation or abscess without bleeding (principal); K64.0 First degree hemorrhoids; K21.0 Gastro-esophageal reflux disease with esophagitis; K44.9 Diaphragmatic hernia without obstruction or gangrene; D50.9 Iron deficiency anemia, unspecified; I10 Essential (primary) hypertension; J45.909 Unspecified asthma, uncomplicated; Z90.49 Acquired absence of other specified parts of digestive tract; Z82.49 Family history of ischemic heart disease and other diseases of the circulatory system; Z79.899 Other long term (current) drug therapy
CPT/HCPCS: 43239; 45378; 88305; 88342; J2704

== ENCOUNTER 2019-01-25 02:31 | Emergency (ER) | payer OTHER ==
[~2019-01-25] VITALS: Ht 172.7 cm; Wt 79.4 kg
[~2019-01-25 02:31] MED LIST changes: -HYDROmorphone 2 MG/ML VIAL IV PRN; -IV RINGERS,LACTATED 1000ML 1,000 ML IV SCH; -LIDOCAINE 1% PF 2 ML VIAL. ID PRN; -MORPHINE SULFATE 2 MG/ML VIAL. IV PRN; -ONDANSETRON PF 4 MG/2 ML VIAL. IV PRN; -PROCHLORPERAZINE 10 MG/2 ML VIAL. IV PRN; -PROPOFOL 60 ML IV ONE; -fentaNYL PF VIAL 100 MCG/2 ML VIAL IV PRN
[2019-01-25 02:38] VITALS: BP 218/113
[2019-01-25] MEDS ORDERED: AMOX1TAB61 PO (02:50)
[2019-01-25] MEDS ORDERED: PRED20TA PO (02:50)
[2019-01-25] MEDS ORDERED: CHLO15MO2 PO (02:50)
--- NOTE | 2019-01-25 02:50 | PHYS DOC ---
Past Medical History Past Medical History: No Pertinent History Additional Past Surgical Histo: GALLSTONES REMOVED Alcohol Use: None Drug Use: None Adult General Chief Complaint Chief Complaint: EARACHE/EAR PAIN HPI HPI Patient is a 53 year old [f__sex] who presents with [] Review of Systems Review of Systems Constitutional: Denies fever or chills [] Eyes: Denies change in visual acuity, redness, or eye pain [] HENT: Denies nasal congestion or sore throat [] Respiratory: Denies cough or shortness of breath [] Cardiovascular: No additional information not addressed in HPI [] GI: Denies abdominal pain, nausea, vomiting, bloody stools or diarrhea [] : Denies dysuria or hematuria [] Musculoskeletal: Denies back pain or joint pain [] Integument: Denies rash or skin lesions [] Neurologic: Denies headache, focal weakness or sensory changes [] Endocrine: Denies polyuria or polydipsia [] All other systems were reviewed and found to be within normal limits, except as documented in this note. Current Medications Current Medications Current Medications Medications (Trade) Dose Ordered Sig/Marybeth Start Time Stop Time Status Last Admin Dose Admin Amoxicillin/ Clavulanate Potassium (Augmentin 875/ 125mg) 1 tab 1X ONCE 01/25/19 02:45 01/25/19 02:46 UNV Bupivacaine HCl/ Epinephrine Bitart (Sensorcain-Mpf Epi 0.5%-1:316140) 30 ml PRN 1X PRN 01/25/19 02:45 UNV Dexamethasone (Decadron) 10 mg 1X ONCE 01/25/19 02:45 01/25/19 02:46 UNV Allergies Allergies Allergies Coded Allergies Type Severity Reaction Last Updated Verified No Known Drug Allergies 10/04/18 No Physical Exam Physical Exam Constitutional: Well developed, well nourished, no acute distress, non-toxic appearance. [] HENT: Normocephalic, atraumatic, bilateral external ears normal, oropharynx moist, no oral exudates, nose normal. [] Eyes: PERRLA, EOMI, conjunctiva normal, no discharge. [] Neck: Normal range of motion, no tenderness, supple, no stridor. [] Cardiovascular:Heart rate regular rhythm, no murmur [] Lungs & Thorax: Bilateral breath sounds clear to auscultation [] Abdomen: Bowel sounds normal, soft, no tenderness, no masses, no pulsatile masses. [] Skin: Warm, dry, no erythema, no rash. [] Back: No tenderness, no CVA tenderness. [] Extremities: No tenderness, no cyanosis, no clubbing, ROM intact, no edema. [] Neurologic: Alert and oriented X 3, normal motor function, normal sensory function, no focal deficits noted. [] Psychologic: Affect normal, judgement normal, mood normal. [] EKG EKG [] Radiology/Procedures Radiology/Procedures [] Course & Med Decision Making Course & Med Decision Making Pertinent Labs and Imaging studies reviewed. (See chart for details) [] Dragon Disclaimer Dragon Disclaimer This electronic medical record was generated, in whole or in part, using a voice recognition dictation system. Departure Departure Impression: Primary Impression: Dentalgia Additional Impressions: Otalgia of right ear Sore throat Disposition: HOME, SELF-CARE Condition: IMPROVED Referrals: CAIO HEATH MD (PCP) Patient Instructions: Otalgia-Brief, Sore Throat, [id number], Toothache-Brief Scripts Prednisone (PREDNISONE) 20 Mg Tablet 2 TAB PO DAILY, #8 TAB Start this medication tomorrow 01/26/19 Prov: DOMINIC DIGGS DO 01/25/19 Chlorhexidine Gluconate (PERIDEX) 15 Ml Mouthwash 15 ML PO BID, #946 ML Swish and spit Prov: DOMINIC DIGGS DO 01/25/19 Amoxicillin/Potassium Clav (AUGMENTIN 875-125 TABLET) 1 Each Tablet 1 TAB PO BID, #14 TAB Prov: DOMINIC DIGGS DO 01/25/19 Problem Qualifiers DOMINIC DIGGS DO Jan 25, 2019 02:50
[2019-01-25] MEDS ORDERED: AMOXICILLIN/K CLAV 875/125MG TABLET. PO ONE (03:00)
[2019-01-25] MEDS ORDERED: BUPIVAC MPF-EPI 0.5%-1:200000 30 ML VIAL. INJ PRN (03:00)
[2019-01-25] MEDS ORDERED: DEXAMETHASONE 4 MG TABLET PO ONE (03:00)
== END 2019-01-25 03:30 | disposition home or self-care (01) ==
LOC: ER 02:31
DX: H92.01 Otalgia, right ear (principal); J02.9 Acute pharyngitis, unspecified; K08.89 Other specified disorders of teeth and supporting structures
CPT/HCPCS: 96372; 99283; J3490; J8540

== ENCOUNTER 2020-11-19 11:26 | Emergency (ER) | payer OTHER ==
[~2020-11-19] VITALS: Ht 152.4 cm; Wt 75.0 kg
[~2020-11-19 11:26] MED LIST changes: +AMLO-186 PO; -AMLO5TAB10 PO; +CHLO15MO2 PO; -POLY17PO28 PO; +POLY17PO52 PO; +PRED20TA PO
[2020-11-19 13:46] LABS: BASO # 0.1 x10^3/uL (0.0-0.2); BASO % 1 % (0-3); EOS # 0.1 x10^3/uL (0.0-0.7); EOS % 2 % (0-3); HEMATOCRIT 25.1 % (36.0-47.0); HEMOGLOBIN 7.1 g/dL (12.0-15.5); LYMPH # 1.7 x10^3/uL (1.0-4.8); LYMPH % 26 % (24-48); MEAN CORPUSCULAR HEMOGLOBIN 17 pg (25-35); MEAN CORPUSCULAR HGB CONC 28 g/dL (31-37); MEAN CORPUSCULAR VOLUME 61 fL (79-100); MONO # 0.4 x10^3/uL (0.0-1.1); MONO % 6 % (0-9); NEUT # 4.3 x10^3/uL (1.8-7.7); NEUT % 64 % (31-73); PLATELET COUNT 245 x10^3/uL (140-400); RED BLOOD COUNT 4.14 x10^6/uL (3.50-5.40); WHITE BLOOD COUNT 6.7 x10^3/uL (4.0-11.0)
[2020-11-19 13:52] LABS: CALCIUM 8.7 mg/dL (8.5-10.1); GFR 70.2; POTASSIUM 3.8 mmol/L (3.5-5.1)
[2020-11-19 13:58] LABS: ALBUMIN 3.7 g/dL (3.4-5.0); ALBUMIN/GLOBULIN RATIO 0.9 (1.0-1.7); TOTAL BILIRUBIN 0.3 mg/dL (0.2-1.0); TOTAL PROTEIN 7.6 g/dL (6.4-8.2)
[2020-11-19] MEDS ORDERED: FERR-36 PO (14:49)
--- NOTE | 2020-11-19 14:50 | PHYS DOC ---
Past Medical History Past Medical History: Anemia, Asthma, Hypertension Past Surgical History: Appendectomy Additional Past Surgical Histo: GALLSTONES REMOVED Smoking Status: Never Smoker Alcohol Use: None Drug Use: None General Adult EDM: Chief Complaint: ABNORMAL LABS HPI: HPI: Patient is a 54 year old female with a history of microcytic anemia, hypertension, asthma, who presents the ED today complaining of low hemoglobin. Patient states she had lab work done last week and today received a call from the PCPs office informing her her hemoglobin was 6.0. Patient denies any bloody stools, hematemesis, vaginal bleeding. She states she has had one transfusion before. She states she has chronic dizziness and fatigue. Review of Systems: Review of Systems: Constitutional: Denies fever or chills. [] Eyes: Denies change in visual acuity. [] HENT: Denies nasal congestion or sore throat. [] Respiratory: Denies cough or shortness of breath. [] Cardiovascular: Reports anemia, fatigue, dizziness, denies denies chest pain or edema. [] GI: Denies abdominal pain, nausea, vomiting, bloody stools or diarrhea. [] : Denies dysuria. [] Musculoskeletal: Denies back pain or joint pain. [] Integument: Denies rash. [] Neurologic: Denies headache, focal weakness or sensory changes. [] Psychiatric: Denies depression or anxiety. [] Heart Score: C/O Chest Pain: N/A Risk Factors: Risk Factors: DM, Current or recent (<one month) smoker, HTN, HLP, family history of CAD, obesity. Risk Scores: Score 0 - 3: 2.5% MACE over next 6 weeks - Discharge Home Score 4 - 6: 20.3% MACE over next 6 weeks - Admit for Clinical Observation Score 7 - 10: 72.7% MACE over next 6 weeks - Early Invasive Strategies Allergies: Allergies: Allergies Coded Allergies Type Severity Reaction Last Updated Verified No Known Drug Allergies 10/04/18 No Physical Exam: PE: Constitutional: Well developed, well nourished, no acute distress, non-toxic appearance. [] HENT: Normocephalic, atraumatic, bilateral external ears normal, oropharynx moist, no oral exudates, nose normal. [] Eyes: PERRLA, EOMI, conjunctiva normal, no discharge. [] Neck: Normal range of motion, no tenderness, supple, no stridor. [] Cardiovascular:Heart rate regular rhythm, no murmur [] Lungs & Thorax: Bilateral breath sounds clear to auscultation [] Abdomen: Bowel sounds normal, soft, no tenderness, no masses, no pulsatile masses. [] Skin: Warm, dry, no erythema, no rash. [] Back: No tenderness, no CVA tenderness. [] Extremities: No tenderness, no cyanosis, no clubbing, ROM intact, no edema. [] Neurologic: Alert and oriented X 3, normal motor function, normal sensory function, no focal deficits noted. Cranial nerves II through XII intact Psychologic: Affect normal, judgement normal, mood normal. [] Current Patient Data: Labs: Laboratory Tests Test 11/19/20 13:35 White Blood Count 6.7 x10^3/uL (4.0-11.0) Red Blood Count 4.14 x10^6/uL (3.50-5.40) Hemoglobin 7.1 g/dL (12.0-15.5) L Hematocrit 25.1 % (36.0-47.0) L Mean Corpuscular Volume 61 fL (79-100) L Mean Corpuscular Hemoglobin 17 pg (25-35) L Mean Corpuscular Hemoglobin Concent 28 g/dL (31-37) L Red Cell Distribution Width 21.0 % (11.5-14.5) H Platelet Count 245 x10^3/uL (140-400) Neutrophils (%) (Auto) 64 % (31-73) Lymphocytes (%) (Auto) 26 % (24-48) Monocytes (%) (Auto) 6 % (0-9) Eosinophils (%) (Auto) 2 % (0-3) Basophils (%) (Auto) 1 % (0-3) Neutrophils # (Auto) 4.3 x10^3/uL (1.8-7.7) Lymphocytes # (Auto) 1.7 x10^3/uL (1.0-4.8) Monocytes # (Auto) 0.4 x10^3/uL (0.0-1.1) Eosinophils # (Auto) 0.1 x10^3/uL (0.0-0.7) Basophils # (Auto) 0.1 x10^3/uL (0.0-0.2) Platelet Estimate Pending Sodium Level 143 mmol/L (136-145) Potassium Level 3.8 mmol/L (3.5-5.1) Chloride Level 107 mmol/L (98-107) Carbon Dioxide Level 28 mmol/L (21-32) Anion Gap 8 (6-14) Blood Urea Nitrogen 14 mg/dL (7-20) Creatinine 1.0 mg/dL (0.6-1.0) Estimated GFR (Cockcroft-Gault) 70.2 BUN/Creatinine Ratio 14 (6-20) Glucose Level 138 mg/dL (70-99) H Calcium Level 8.7 mg/dL (8.5-10.1) Iron Level 16 ug/dL (50-170) L Total Iron Binding Capacity 480 ug/dL (250-450) H Iron Saturation 3 % (15-34) L Total Bilirubin 0.3 mg/dL (0.2-1.0) Aspartate Amino Transferase (AST) 14 U/L (15-37) L Alanine Aminotransferase (ALT) 19 U/L (14-59) Alkaline Phosphatase 115 U/L (46-116) Total Protein 7.6 g/dL (6.4-8.2) Albumin 3.7 g/dL (3.4-5.0) Albumin/Globulin Ratio 0.9 (1.0-1.7) L Laboratory Tests 11/19/20 13:35 Laboratory Tests 11/19/20 13:35 Vital Signs: Vital Signs Date Time Temp Pulse Resp B/P (MAP) Pulse Ox O2 Delivery O2 Flow Rate FiO2 11/19/20 11:57 98.3 84 16 190/82 (118) 97 Room Air 98.3 EKG: EKG: [] Radiology/Procedures: Radiology/Procedures: [] Course & Med Decision Making: Course & Med Decision Making Pertinent Labs and Imaging studies reviewed. (See chart for details) This is a 54-year-old female patient presented to the ED today complaining of hemoglobin of 6.0 done last week. Hemoglobin in the ED 7.1 with hematocrit 25.1. Patient has history of microcytic anemia. I recommended taking iron tablets and following up with a ticketing agent. Worsening discussed increasing dietary iron intake. Dragon Disclaimer: Dragon Disclaimer: This electronic medical record was generated, in whole or in part, using a voice recognition dictation system. Departure Departure Impression: Primary Impression: Anemia Qualified Codes: D64.9 - Anemia, unspecified Disposition: HOME / SELF CARE / HOMELESS Condition: STABLE Referrals: CAIO HEATH MD (PCP) follow up next week DEBORA BAUTISTA MD follow up next week Patient Instructions: Anemia, Nonspecific-Brief Additional Instructions: You were evaluated for anemia, your hemoglobin is 7.1 with hematocrit of 25.1. We highly recommend you follow-up with a ticketing agent. Increase your dietary iron intake through foods like meats, nuts etc. please take iron tablets daily. Iron tablets can cause constipation, consider taking MiraLAX once a day or stool softener. Scripts Ferrous Sulfate (IRON) 325 Mg Tablet 1 TAB PO DAILY, #90 TAB 0 Refills Prov: AUNDREA LAFLEUR APRN 11/19/20 AUNDREA LAFLEUR APRN November 19, 2020 14:50
[2020-11-19 15:00] VITALS: BP 166/81
[2020-11-19 15:01] LABS: PLT ESTIMATE ADEQUATE (ADEQUATE)
[2020-11-19 15:02] LABS: ANISOCYTOSIS MOD; HYPOCHROMIA MARKED; MICROCYTOSIS MARKED; OVALOCYTES FEW; POLYCHROMASIA SLIGHT
[2020-11-19] MEDS ORDERED: IRON POLYSACCHARIDE COMPLEX 150 MG CAPSULE PO SCH (16:00)
== END 2020-11-19 15:34 | disposition home or self-care (01) ==
LOC: ER 11:26
DX: D64.9 Anemia, unspecified (principal); J45.909 Unspecified asthma, uncomplicated; I10 Essential (primary) hypertension
CPT/HCPCS: 36415; 80053; 83540; 83550; 85025; 86850; 86900; 86901; 99283

== ENCOUNTER → 2021-05-21 | Outpatient (CLI) | payer OTHER ==
[~2021-05-21] MED LIST changes: +FERR-36 PO
[2021-05-21 09:41] LABS: BASO % 1 % (0-3); EOS # 0.1 x10^3/uL (0.0-0.7); EOS % 2 % (0-3); HEMATOCRIT 29.2 % (36.0-47.0); HEMOGLOBIN 8.8 g/dL (12.0-15.5); LYMPH # 1.6 x10^3/uL (1.0-4.8); LYMPH % 36 % (24-48); MEAN CORPUSCULAR HEMOGLOBIN 22 pg (25-35); MEAN CORPUSCULAR HGB CONC 30 g/dL (31-37); MEAN CORPUSCULAR VOLUME 72 fL (79-100); MONO # 0.5 x10^3/uL (0.0-1.1); MONO % 10 % (0-9); NEUT # 2.4 x10^3/uL (1.8-7.7); NEUT % 52 % (31-73); PLATELET COUNT 198 x10^3/uL (140-400); RED BLOOD COUNT 4.07 x10^6/uL (3.50-5.40); WHITE BLOOD COUNT 4.6 x10^3/uL (4.0-11.0)
[2021-05-21 10:59] LABS: PLT ESTIMATE ADEQUATE (ADEQUATE)
[2021-05-21 11:00] LABS: ANISOCYTOSIS MOD; OVALOCYTES OCC; POLYCHROMASIA SLIGHT
== END ==
LOC: ONCLAB 08:49
PROVIDERS: ATTEND Internal Medicine Hematology & Oncology
DX: D50.9 Iron deficiency anemia, unspecified (principal)
CPT/HCPCS: 36415; 82728; 83540; 83550; 85025